=== PATIENT | female | born 2000 | race Caucasian/White ===

== ENCOUNTER 2023-04-27 09:19 | Outpatient (REF) | payer OTHER, SELFPAY ==
[2023-04-27 15:04] LABS: CT PCR NOT DETECTED (Not Detect.); NG PCR NOT DETECTED (Not Detect.)
[2023-04-28 13:15] LABS: BV Int Neg Control Negative (Negative); BV Int Pos Control Positive (Positive)
== END 2023-04-27 09:20 | disposition home or self-care (01) ==
LOC: HO.LNP 09:19
PROVIDERS: PCP Pediatrics; Visit Provider Advanced Practice Midwife
DX: Z01.419 Encounter for gynecological examination (general) (routine) without abnormal findings (principal); Z11.3 Encounter for screening for infections with a predominantly sexual mode of transmission
CPT/HCPCS: 0353U; 87480; 87510; 87660; 88142

== ENCOUNTER 2023-04-27 09:19 | Outpatient (AMB) | payer OTHER, SELFPAY ==
[2023-04-27 09:32] VITALS: BP 106/66; BMI 25.8
--- NOTE | 2023-04-27 09:32 | MHC.OFFVIS ---
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 Intake Note: concern of color change of menses Homemaker Companion Required: No Information Interpreted: non-clinical & clinical Party Plan Demonstrator: Party Plan Demonstrator Present (Joi) Allergies No Known Allergies [No Known Allergies*] Allergy (Verified 04/27/23 09:40) Medication List - Last Reconciled 04/27/23 by DEONNA Leal norgest/e.estradiol-e.estrad 0.15 mg-30 mcg (84)/10 mcg (7) (Simpesse) PO naproxen 500 mg PO BID Is last menstrual period known: Yes Last menstrual period: 03/13/23 Post menopausal: No 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 She is sexually active though not recently she has been on controls for many many years to deal with her very seriously heavy crampy periods she was on regular control pills for a while but she was still getting very bed periods keeping her from school so than she started on the every 3 months formulation with 1 week of placebo every 3 months and that is been working well though she is starting to notice that sometime she spotting in between for instance she recently spotted and she is 6 weeks in to her pack. After thinking about her options she thinks she would like to stay on the pills. She is in college at [employer] and is is seen year and is planning graduate school and double major. 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 She does use condoms if she needs to for a backup and for safer sex she uses her seatbelt and exercises and eats well. [facility] Surgical History Hx of wisdom tooth extraction Family History Family/Other Breast cancer Social History (Updated 04/27/23 @ 09:42 by JOANNA Lott) Alcohol intake: current Alcohol intake frequency: holidays/special occasions only Female Reproductive History Menstrual Age of Menarche: 14 Duration of menses: 6-7 days Date of last menstrual period: 03/13/23 control method: pills Total pregnancies: 0 Physical Exam Vital Signs: Last Vital Signs BP 106/66 04/27/23 09:32 BMI result Body Mass Index 25.8 Const General: healthy appearing, comfortable, no acute distress, well developed and alert Nutritional Appearance: average body habitus Orientation/consciousness: patient oriented x3 Limitations: no limitations HEENT Head: Yes normocephalic Neck Neck: Yes normal visual inspection Thyroid: Thyroid normal Chest Chest palpation & inspection: normal inspection of the chest Breast/axilla inspection: normal inspection of the breasts and normal inspection of the axillae Breast/axilla palpation: normal palpation of the breasts and normal palpation of the axillae Resp Effort & Inspection: normal respiratory effort GI Inspection: Yes normal to inspection, No Abdominal wall edema and No distended Palpation (GI): Soft to palpation and nontender General: Yes bladder normal to palpation External Female Exam: normal external appearance and normal appearance of the urethra Speculum Exam - Vagina: normal appearance of the vagina, normal palpation and normal vaginal discharge Speculum Exam - Cervix: normal appearance of the cervix, normal palpation and nontender Bimanual exam- vagina & uterus: normal bimanual exam, normal palpation, uterine size normal, bladder normal to palpation, consistency normal, normal palpation, uterine mobility normal, uterine shape normal, No Cervical tenderness present, non-tender and no cervical motion tenderness Bimanual Exam- Adnexa, other: normal adnexae, no masses, normal and No adnexal tenderness Neuro General: patient oriented x3 Assessment & Plan Assessment & Plan (1) Well woman exam with routine gynecological exam: Code(s): Z01.419 - Encounter for gynecological examination (general) (routine) without abnormal findings (2) control counseling: Code(s): Z30.09 - Encounter for other general counseling and advice on contraception (3) Surveillance for control, oral contraceptives: Code(s): Z30.41 - Encounter for surveillance of contraceptive pills (4) Cervical cancer screening: Code(s): Z12.4 - Encounter for screening for malignant neoplasm of cervix (5) Encounter for screening examination for sexually transmitted disease: Code(s): Z11.3 - Encounter for screening for infections with a predominantly sexual mode of transmission Plan -----Discussed in this visit the following: healthy balanced diet, regular and consistent exercise, getting recommended health screens, doing the best she can for her particular health concerns, kegel exercises, pap smear screening and followup recommendations, mammography screening and SBE, normal changes in cycles in her life stage--- . Reviewed her control in detail reviewed that very often women will have a breakthrough bleed sometimes fpc through a 3 month series and if that happens 1 option may be to just treat that as her placebo week and then resume 7 days afterwards with the active pills but never go more than 7 days without the active pills consider carrying tampons always so that she is always prepared and ready and I refilled her prescriptions for another year she is open to doing testing for STIs so lab work orders were placed we will see her in 1 year. Is on the portal. Orders: Orders HIV Ab/Ag Today Z01.419 - Encounter for gynecological examination (general) (routine) without abnormal findings, Z11.3 - Encounter for screening for infections with a predominantly sexual mode of transmission, Z12.4 - Encounter for screening for malignant neoplasm of cervix, Z30.09 - Encounter for other general counseling and advice on contraception, Z30.41 - Encounter for surveillance of contraceptive pills Hepatitis B Surface Antigen Today Z01.419 - Encounter for gynecological examination (general) (routine) without abnormal findings, Z11.3 - Encounter for screening for infections with a predominantly sexual mode of transmission, Z12.4 - Encounter for screening for malignant neoplasm of cervix, Z30.09 - Encounter for other general counseling and advice on contraception, Z30.41 - Encounter for surveillance of contraceptive pills Hepatitis C Antibody Today Z01.419 - Encounter for gynecological examination (general) (routine) without abnormal findings, Z11.3 - Encounter for screening for infections with a predominantly sexual mode of transmission, Z12.4 - Encounter for screening for malignant neoplasm of cervix, Z30.09 - Encounter for other general counseling and advice on contraception, Z30.41 - Encounter for surveillance of contraceptive pills Syphilis Screen Today Z01.419 - Encounter for gynecological examination (general) (routine) without abnormal findings, Z11.3 - Encounter for screening for infections with a predominantly sexual mode of transmission, Z12.4 - Encounter for screening for malignant neoplasm of cervix, Z30.09 - Encounter for other general counseling and advice on contraception, Z30.41 - Encounter for surveillance of contraceptive pills Medications: New L norgest/e.estradiol-e.estrad 0.15 mg-30 mcg (84)/10 mcg (7) (Simpesse) 1 tab PO DAILY 182 ea 3RF Coding Level of Care Code New Pt Prev Care 18-39yr(19188 Diagnoses Well woman exam with routine gynecological exam Z01.419 control counseling Z30.09 Surveillance for control, oral contraceptives Z30.41 Cervical cancer screening Z12.4 Encounter for screening examination for sexually transmitted disease Z11.3
== END 2023-04-27 10:21 | disposition home or self-care (01) ==
PROVIDERS: PCP Pediatrics; Visit Provider Advanced Practice Midwife
DX: Z01.419 Encounter for gynecological examination (general) (routine) without abnormal findings (principal); Z30.09 Encounter for other general counseling and advice on contraception; Z30.41 Encounter for surveillance of contraceptive pills; Z12.4 Encounter for screening for malignant neoplasm of cervix; Z11.3 Encounter for screening for infections with a predominantly sexual mode of transmission
CPT/HCPCS: 99385

== ENCOUNTER → 2024-02-23 08:06 | Outpatient (BNVA) | payer OTHER, SELFPAY | PROVIDERS: PCP Pediatrics; Visit Provider Registered Nurse | DX: S50.871A Other superficial bite of right forearm, initial encounter (principal); W50.3XXA Accidental bite by another person, initial encounter | CPT/HCPCS: 90715; 99202 ==

== ENCOUNTER → 2024-10-17 11:40 | Outpatient (BNVA) | payer OTHER, SELFPAY | PROVIDERS: PCP Pediatrics; Visit Provider Physician Assistant Medical | DX: S50.812A Abrasion of left forearm, initial encounter (principal); S50.811A Abrasion of right forearm, initial encounter; S60.511A Abrasion of right hand, initial encounter; W50.4XXA Accidental scratch by another person, initial encounter; Z02.79 Encounter for issue of other medical certificate | CPT/HCPCS: 99202 ==

== ENCOUNTER → 2024-10-21 11:31 | Outpatient (BNVA) | payer OTHER, SELFPAY | PROVIDERS: PCP Pediatrics; Visit Provider Physician Assistant Medical | DX: S50.812A Abrasion of left forearm, initial encounter (principal); S50.811A Abrasion of right forearm, initial encounter; W50.4XXA Accidental scratch by another person, initial encounter; Z02.79 Encounter for issue of other medical certificate | CPT/HCPCS: 99213 ==

== ENCOUNTER 2025-05-01 09:03 | Outpatient (AMB) | payer OTHER, SELFPAY ==
--- NOTE | 2025-05-01 09:07 | A.OFFPC_ITS ---
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 Required: No Accompanied by: Self / Same As Patient Allergies No Known Allergies (No Known Allergies*) Allergy (Verified 05/01/25 09:07) Medication List - Last Reconciled 05/01/25 by ALBAN Villatoro acetaminophen ER (Tylenol 8 Hour) 650 mg PO Q12H ibuprofen 400 mg PO Q6H PRN L norgest/e.estradiol-e.estrad 0.15 mg-30 mcg (84)/10 mcg (7) (Simpesse) take 1 tablet daily following the order on blister card(s) PO start with next menses Tobacco use date assessed: 05/01/25 Dental Screening Dental Screen Date: 05/01/25 Did you have a dental visit in the last 12 months?: No Did you have a dental problem in the last 6 months where you did not have access to dental care?: Yes Was dental information given to patient?: Patient has dentist HPI HPI Comments History of Present Illness Details History of Present Illness The patient is a 24 year old female without significant PMH presenting for a new patient visit to establish primary care. She has no significant past medical history. The patient is interested in resuming control for both contraception and symptom control, with a preference for symptom management. She was previously on a monthly oral contraceptive and most recently on a 3-month cycle pill. She notes that her past medications initially helped her symptoms but became less effective after a year or two. The patient is also considering an IUD as a potential option. The patient reports intermittent lower back and hip pain, which is worse when lying down to sleep. 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 The patient reports restless sleep and difficulty falling asleep unless she is exhausted. She experiences racing thoughts at bedtime and finds that background noise, such as a TV, is necessary to fall asleep, though her back and hip pain can also interfere with her comfort. Regarding health maintenance, her last Pap smear was one to two years ago. She is up to date on her annual flu shot and COVID booster. She received a tetanus shot in April of 2024 after being bitten at work. She wears glasses for vision but needs an updated eye exam. Medical History: - No significant medical history reporte d. - History of animal bite in April. Medications: - Past use of oral contraceptives. Health Maintenance To establish a baseline, lab work will be ordered to check her blood count, sugar, thyroid, and cholesterol levels. A referral for an eye exam will be placed as she is due for an updated prescription. A referral to gynecology will be placed for a Pap smear and contraception counseling. A follow-up appointment is scheduled in six weeks to review lab results and ensure referrals are proceeding. 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 - Previously experienced a lapse in [facility] [employer] internation [employer] insurance coverage but recently obtained it through her job. - Reports difficulty sleeping, with a ra cing mind at night. - Uses TV for background noise to aid sl eep. - Has a history of playing sports, inclu ding softball and field hockey. Patient was informed and verbally consented to the use of an ambient scribe for clinic note documentation during this visit. PENDING SALE TO [facility] Medical History (Updated 05/01/25 @ 11:47 by ALBAN Villatoro) Health care maintenance Insomnia Surgical History Hx of wisdom tooth extraction Family History Family/Other Breast cancer Social History (Updated 04/27/23 @ 09:42 by JOANNA Lott) Housing: House Alcohol intake: current Alcohol intake frequency: holidays/special occasions only Patient Tobacco Use Status: Never used Tobacco e-Cigarette/Vaping Use: Never Used service: No Current occupational status: employed Current occupation: [employer] Female Reproductive History Menstrual Age of Menarche: 14 Questionnaire PHQ-9 Over the last 2 weeks, how often have you been bothered by any of the following problems? 1. Little interest or pleasure in doing things: not at all 2. Feeling down, depressed, or hopeless: not at all 3. Trouble falling or staying asleep, or sleeping too much: more than half the days 4. Feeling tired or having little energy: several days 5. Poor appetite or overeating: not at all 6. Feeling bad about yourself - or that you are a failure or have let yourself or your family down: not at all 7. Trouble concentrating on things, such as reading the newspaper or watching television: not at all 8. Moving or speaking so slowly that other people could have noticed. Or the opposite - being so fidgety or restless that you have been moving around a lot more than usual: not at all 9. Thoughts that you would be better off or of hurting yourself in some way: not at all Total score: 3 Depression Screening Interpretation: Negative Depression Screening Done: Yes Source: Developed by Drs. Lenny Dupree, Yenifer Duncan, Danial Kovacs and colleagues, with an educational lars from [employer]. Thrive Questionnaire Date Thrive assessed: 05/01/25 I am a: Patient What is your living situation today?: I have a steady place to live Within the past 12 months, did the food you bought not last and you didn't have the money to get more?: Never true Within the past 12 months, did you worry whether your food would run out before you got money to buy more?: Never true Do you have trouble paying for medicines?: No Do you have trouble getting transportation to medical appointments?: No Do you have trouble paying your heating and electricity bill?: No Do you have trouble taking care of your child, family member or friend?: No Do you have trouble with day-to-day activities such as bathing, preparing meals, shopping, managing finances, etc.?: No Are you currently unemployed and looking for a job?: No Are you interested in more education?: No THRIVE Score: 0 AUDIT C Alcohol Use Questionnaire (AUDIT-C) 1. How often do you have a drink containing alcohol?: 2-4 times a month 2. How many drinks containing alcohol do you have on a typical day when you are drinking?: 1 or 2 3. How often do you have six or more drinks on one occasion?: Never Total Score: 2 DON-7 AMB Questionnaire DON-7 Date DON - 7 assessed: 05/01/25 Feeling nervous, anxious, or on edge: 1 = Several days Not being able to stop or control worryin = Several days Worrying too much about different things: 0 = Not at all Trouble relaxin = Not at all Being so restless that it is hard to sit still: 1 = Several days Becoming easily annoyed or irritable: 1 = Several days Feeling afraid as if something awful might happen: 0 = Not at all Total DON-7 score (0-4 normal; 5-9 mild; 10-14 moderate; 15-21 severe): 4 Source: Developed by Drs. Lenny Dupree, Yenifer Duncan, Danial Kovacs and colleagues, with an educational lars from [employer]. Review of Systems Narrative Review of Systems - Eyes: Reports need for updated glasses prescription. - Ears, Nose, Throat: Denies problems with hearing. - Cardiovascular: Denies chest pain. - Respiratory: Denies shortness of breath and cough. - Gastrointestinal: Denies constipation, diarrhea, and heartburn. - Musculoskeletal: Reports intermittent lower back and hip pain, worse when lying down. - Neurological: Reports difficulty falling asleep due to racing thoughts. Physical exam (Primary Care) Vital Signs: Last Vital Signs Temp 98.5 F 05/01/25 09:14 Pulse 90 05/01/25 09:14 Resp 18 05/01/25 09:14 BP 126/66 05/01/25 09:14 Pulse Ox 98 05/01/25 09:14 Oxygen Delivery Method Room Air 05/01/25 09:14 BMI result Body Mass Index 27.6 GENERAL Well developed, Well nourished, in no apparent distress HEENT Head-Normocephalic Eyes- PERRLA, EOMI, Conjuctiva clear, lids WNL Ears- Canals clear, TMs WNL Mouth/Throat-No lesions, no erythema, no exudate Neck- Supple, No lymphadenopathy, thyroid WNL RESPIRATORY Normal I:E, Clear to auscultation CARDIOVASCULAR Regular, rate and rhythm, No murmurs or rubs GASTROINTESTINAL Soft, nontender, normal bowel sounds, no masses MUSCULOSKELETAL Back- nontender Joints- no swelling or deformity NEUROLOGICAL Gait normal PSYCHIATRIC Oriented to person, place and time Mood and affect WNL Appearance WNL Speech WNL Thought processes WNL Tobacco/Smoking Status: Tobacco use Status Tobacco use date assessed 05/01/25 05/01/25 09:09 Patient Tobacco Use Status Never used Tobacco 05/01/25 09:17 e-Cigarette/Vaping Use Never Used 05/01/25 09:17 PHQ-9: PHQ-9 Score PHQ-9: Total score 3 05/01/25 09:45 Depression Screening Interpretation: Negative Thrive Assessment: Date of Thrive Assessment Date Thrive assessed 05/01/25 05/01/25 09:09 Coding Level of Care Code New Pt New Pt Level 4 (80674) Patient Type New Diagnoses control counseling Z30.09 Health care maintenance Z00.00 Insomnia G47.00 Time Spent (min) 35 Comment Time spent on chart review, H&P, Patient education and orders. Assessment & Plan Assessment & Plan (1) control counseling: Code(s): Z30.09 - Encounter for other general counseling and advice on contraception Category: Medical Plan: Will restart Simpesse. Will refer to NURSERY MANAGER to discuss options (2) Health care maintenance: Code(s): Z00.00 - Encounter for general adult medical examination without abnormal f indings Category: Medical Plan: Will get labs. Will refer to NURSERY MANAGER and optometry (3) Insomnia: Code(s): G47.00 - Insomnia, unspecified Category: Medical Plan: Discussed good sleep hygiene. Recommend trying Melatonin Plan Plan Patient was informed and verbally consented to the use of an ambient scribe for clinic note documentation during this visit. 1. Contraception Management The patient desires to restart control for both contraception and symptom control. A one-year prescription for her previous 3-month cycle oral contraceptive will be sent to her preferred [facility] pharmacy to serve as a temporary measure. She has been counseled to start the pills on the first day of her next period. A referral will be placed for her to see a chop saw operator to discuss long- term options, including an IUD, implants, or injections, and to undergo a Pap smear. 2. Insomnia The patient reports difficulty sleeping due to racing thoughts and discomfort from back and hip pain. Discussed sleep hygiene, including maintaining a consistent sleep schedule, keeping the bedroom dark, quiet, and cool, avoiding caffeine after 2-3 PM, and discontinuing blue light from screens at least one hour before bed. Recommended trying [id number] melatonin, starting with 3 mg about an hour before bedtime for a couple of weeks to help reset her sleep cycle, with the option to increase to 5 mg if needed. Explained the risks of long-term, high-dose melatonin use on natural production. Discussion Notes I discussed the plan with the patient for this new patient visit. I am placing referrals for an eye exam and a gynecology visit, where she will undergo a Pap smear and discuss long-term contraceptive options like an IUD. In the interim, I am prescribing a one-year supply of her previous 3-month oral contraceptive, which I will send to her preferred pharmacy. I instructed her to restart the pills on the first day of her next menstrual cycle. We will also be ordering baseline lab work. We discussed sleep hygiene techniques for her insomnia, including maintaining a regular sleep schedule, creating a restful environment, and avoiding blue light and caffeine before bed. I recommended she try a 3 mg dose of melatonin nightly for two weeks to help reset her sleep cycle and reassured her that it should not cause difficulty waking up. We will follow up in about six weeks to review her lab results and check on the progress of her referrals. Patient Instructions - I have sent a prescription [facility] control [facility] to the [facility] [address]. Please allow about an hour for the pharmacy to get it ready. Start taking the pills on the first day of your next period. - Go to the lab to have your blood work done. There is a lab to the left of the waiting room. - Our office will call you to schedule appointments for an eye exam and a visit with a chop saw operator. - For trouble sleeping, try to go to bed and wake up around the same time each day, even on weekends. Make sure your room is dark, quiet, and cool. Avoid caffeine in the afternoon and evening. Turn off screens like your TV and phone at least an hour before bed. - You can try taking 3 mg of melatonin about an hour before bed for a couple of weeks to help your sleep. This should not make it hard for you to wake up in the morning. - Schedule a follow-up appointment in six weeks to go over your lab results and check on your progress. Orders: Orders Complete Blood Count no Diff Today Z00.00 - Encounter for general adult medical examination without abnormal findings, Z30.09 - Encounter for other general counseling and advice on contraception Comprehensive Met. Panel Today Z00.00 - Encounter for general adult medical examination without abnormal findings, Z13.1 - Encounter for screening for dariela betes mellitus Lipid Panel Today Z00.00 - Encounter for general adult medical examination without abnormal findings, Z13.220 - Encounter for screening for lipoid disorders TSH reflex Free T4 Today Z00.00 - Encounter for general adult medical examination without abnormal findings Vitamin D 25-OH Total Today Z00.00 - Encounter for general adult medical examination without abnormal findings Referrals DRUM REEL CUTTER Referral Z12.4 - Encounter for screening for malignant neoplasm of cervix, Z30.09 - Encounter for other general counseling and advice on contraception Optometry Referral H54.7 - Unspecified visual loss Medications: New L norgest/e.estradiol-e.estrad 0.15 mg-30 mcg (84)/10 mcg (7) (Simpesse) take 1 tablet daily following the order on blister card(s) PO start with next menses 182 ea 0RF contraception
[2025-05-01 09:14] VITALS: BP 126/66; PULSE 90; RESP 18; TEMP 36.9; O2SAT 98; BMI 27.6
== END 2025-05-01 09:47 | disposition home or self-care (01) ==
LOC: HO.HMCHD 09:04
PROVIDERS: PCP Pediatrics; Visit Provider Physician Assistant Medical
DX: Z30.09 Encounter for other general counseling and advice on contraception (principal); Z00.00 Encounter for general adult medical examination without abnormal findings; G47.00 Insomnia, unspecified

== ENCOUNTER 2025-05-07 07:46 | Outpatient (REF) | payer OTHER, SELFPAY ==
--- OUTSIDE RECORDS SUMMARY | 2025-05-07 07:50 | XMS_ITS | Encounter Summary ---
Author Organization [facility] Address [address] [place] [address] Phone Care Team Providers Care Public Address Servicer Name Role Phone Naz Bass DO Primary Care Provider [phone] Encounter Details Date Type Department Care Team (Late st Contact Info) Description 09/07/2010 Documentation [facility] [place] [facility] [address] [place], [place] [id number] Family Medicine, Physician [address] [place] [address] Social History Tobacco Use Types Packs/Day Years Used Date Smoking Tobacco: Never Assessed Comments Unknown Sex and Gender Information Value Date Recorded Sex Assigned at Not on file Legal Sex Female 4:52 PM EDT Gender Identity Female 02/07/2020 1:11 PM EDT Sexual Orientation Not on file documented as of this encounter Plan of Treatment Not on file documented as of this encounter Visit Diagnoses Not on filedocumented in this encounter Care Teams Public Address Servicer Relationship Specialty Start Date End Date Naz Bass DO [address] [place] [address] [place], [place] [address] PCP - General 12/30/16 11/09/22 documented as of this encounter
--- OUTSIDE RECORDS SUMMARY | 2025-05-07 07:50 | XMS_ITS | Encounter Summary ---
Author Organization [facility] Address [address] [place] [address] Phone Care Team Providers Care Operations Logistics Analyst Name Role Phone Naz Bass DO Primary Care Provider [phone] Encounter Details Date Type Department Care Team (Late st Contact Info) Description 09/07/2010 Documentation [facility] [address] [place], [place] [id number] Family Medicine, Physician [address] [place] [address] Social History Tobacco Use Types Packs/Day Years [...] on filedocumented in this encounter Care Teams Operations Logistics Analyst Relationship Specialty Start Date End Date Naz Bass DO [address] [place] [address] [place], [place] [address] PCP - General 12/30/16 11/09/22 documented as of this encounter
--- OUTSIDE RECORDS SUMMARY | 2025-05-07 07:50 | XMS_ITS | Encounter Summary ---
Author Organization [facility] Address [address] [place] [id number] Phone Care Team Providers Care Wall Covering Contractor Name Role Phone Naz Bass DO Primary Care Provider [phone] Reason for Visit * Reason Comments Med Refill Encounter Details Date Type Department Care Team (Late st Contact Info) Description 06/28/2019 Refill [facility] [address] [place] [address] Naz Bass DO [address] [place] [address] Oral contraceptive pill surveillance Social History Tobacco Use Types Packs/Day Years Used Date Smoking Tobacco: Never Smokeless Tobacco: Never Comments:Never smoker Alcohol Use Standard Drinks/Week Comments No 0 (1 standard drink = 0.6 oz pur e alcohol) Comments Unknown Sex and Gender Information Value Date Recorded Sex Assigned at Not on file Legal Sex Female 4:52 PM EDT Gender Identity Female 02/07/2020 1:11 PM EDT Sexual Orientation Not on file documented as of this encounter Miscellaneous Notes * Telephone Encounter - Serina Tabares LPN - 06/28/2019 8:53 AM EST Refill request for OCP's. Last PE 12/12/18/GILBERTO documented in this encounter Plan of Treatment Not on file documented as of this encounter Visit Diagnoses Diagnosis Oral contraceptive pill surveillance documented in this encounter Care Teams Wall Covering Contractor Relationship Specialty Start Date End Date Naz Bass DO [address] [facility] [place] [address] PCP - General 12/30/16 11/09/22 documented as of this encounter
--- OUTSIDE RECORDS SUMMARY | 2025-05-07 07:50 | XMS_ITS | Encounter Summary ---
Author Organization [facility] Address [address] [place] [address] Phone Care Team Providers Care Intervention Nurse Name Role Phone Naz Bass DO Primary Care Provider Encounter Details Date Type Department Care Team (Late st Contact Info) Description 01/05/2017 Conversion Encounter [facility] [address] [place] [address] Social History Tobacco Use Types Packs/Day Years Used Date Smoking Tobacco: Never Comments:Never smoker Comments Unknown Sex and Gender Information Value Date Recorded Sex Assigned at Not on file Legal Sex Female 4:52 PM EDT Gender Identity Female 02/07/2020 1:11 PM EDT Sexual Orientation Not on file documented as of this encounter Plan of Treatment Not on file documented as of this encounter Visit Diagnoses Not on filedocumented in this encounter Care Teams Intervention Nurse Relationship Specialty Start Date End Date Naz Bass DO [address] [facility] [place] [address] PCP - General 12/30/16 11/09/22 documented as of this encounter
--- OUTSIDE RECORDS SUMMARY | 2025-05-07 07:50 | XMS_ITS | Encounter Summary ---
Author Organization [facility] Address [address] [place] [address] Phone Care Team Providers Care Oracle Architect Name Role Phone Naz Bass DO Primary Care Provider [phone] Encounter Details Date Type Department Care Team (Late st Contact Info) Description 08/01/2013 Documentation [facility] [address] [place] [address] Family Medicine, Physician [address] [place] [address] Social History Tobacco Use Types Packs/Day Years [...] on filedocumented in this encounter Care Teams Oracle Architect Relationship Specialty Start Date End Date Naz Bass DO [address] [place] [address] [place], [place] [address] PCP - General 12/30/16 11/09/22 documented as of this encounter
--- OUTSIDE RECORDS SUMMARY | 2025-05-07 07:50 | XMS_ITS | Clinical Summary ---
Author Organization [facility] Address [address] [place] [address] Phone Care Team Providers Care Signs Sales Representative Name Role Phone Unavailable Primary Care Provider Unavailabl e Allergies No known active allergies Medications naproxen sodium (Anaprox DS) 550 MG tabletIndication s:Menstrual cramps 1 tablet q12h prn menstrual cramps 30 tablet 2 0 Active Levonorgest-Eth Estrad 91-Day 0.15-0.03 &0.01 MG tabletIndication s:Encounter for control pills maintenance TAKE 1 TABLET BY MOUTH EVERY DAY 91 tablet 3 3 Active Active Problems Problem Noted Date Diagnosed Date Depression 10/28/2021 Overview (12/08/2021): Working w/ [facility] summer 2021 Assessment & Plan (12/08/2021 10:37 AM EDT): Seeing [facility] this summer Has access to therapy @ [facility]- encouraged to reach back out to the college therapist she saw last spring when she gets back to [employer] Assessment & Plan (11/18/2021 10:26 AM EDT): Patient with low mood, low motivation, sleep disturbance, negative feelings about self, history of suicidal thoughts in the context of complex family situation and unresolved grief and loss. Patient will benefit from CBT strategies to address negative thoughts and increase healthy behaviors. Patient is ready to address low mood. Pt. Shows good insight. PLAN: 1. Follow up with [facility] three weeks 2. Patient goal is to reduce discomfort from depressive symptoms from average of 7 to 4. 3. Behavioral Recommendations: a. Engage in activities she enjoys over the summer. b. Begin to catch negative thoughts. c. Work towards getting enough sleep and regular meal schedule with erratic work hours. Assessment & Plan (10/28/2021 11:30 AM EDT): Patient with low mood, low motivation, sleep disturbance, negative feelings about self, history of suicidal thoughts in the context of complex family situation and unresolved grief and loss. Patient will benefit from CBT strategies to address negative thoughts and increase healthy behaviors. Patient is ready to address low mood. Pt. Shows good insight. PLAN: 1. Follow up with [facility] three weeks 2. Patient goal is to reduce discomfort from depressive symptoms from average of 7 to 4. 3. Behavioral Recommendations: a. Engage in activities she enjoys over the summer. b. Begin to catch negative thoughts. c. Work towards getting enough sleep and regular meal schedule with erratic work hours. Chronic migraine without aur a without status migrainosus, not intractable 05/05/2017 Overview (12/13/2018): Infreq nowadays Assessment & Plan (12/12/2017 6:50 AM EDT): Perhaps one a week; she needs better sleep and drink more fluids and decrease stress level Assessment & Plan (05/05/2017 2:09 PM EST): Better later, might have had a form of one yesterday. Resolved Problems Problem Noted Date Diagnosed Date Resolved Date History of 2019 novel edwards virus disease (COVID-19) 05/23/2020 10/05/2020 Overview (05/23/2020): [id number]- tested @ college; no signs and symptoms Needed EKG to return to sports- was wnl and letter written Immunizations Immunization Administration Dates Next Due COVID-19 Pfizer, monovalent, 12+ years 1,07/08/2020 DTaP 5 08/15/2006, 3,02/20/2002,12/19,2001 H1N1 06/15/2009,04/21/2009 HPV, Quadrivalent 03/04/2014,10/30/2013,09/03/19 14 Hep A, ped/adol 09/22/2014,09/02/2013 Hep B, ped/adol 05/23/2002,2001,2001 Hib (PRP-T) 11/05/2002, 2,2001,09/26 IPV 08/15/2006, 3,2001,09/26 Influenza, injectable, quadr ivalent, preservative free 02/08/2020,04/21/2018,05/05/2017 Influenza, injectable, trivalent 04/21/2009,07/2006,06/28/2006 Influenza, injectable, triva lent, preservative free 03/15/2021 Influenza, intranasal, quadrivalent 03/04/2014 Influenza, intranasal, trivalent 02/23/2012,03/22,02/04/2010 MMR 08/06/2002 MMRV 08/15/2006 Meningococcal B Trumenba 06/23/2020,12/20/2019 Meningococcal Conj (Menactra) MCV4P 12/11/2017,0 08/08/2012 Pneumococcal Conjugate 11/05/2002,2001,2001,09/26 Tdap 08/08/2012 Varicella 08/06/2002 Family History Medical History Relation Name Comments No Known Problems Father Martin Cancer Maternal Grandfather throat Hyperlipidemia Maternal Grandmother Hypertension Maternal Grandmother Leukemia Maternal Grandmother Ovarian cancer Maternal Grandmother Emphysema Mother Jeanna smoker Melanoma Mother Jeanna Migraines Mother Jeanna Colon polyps Sister 1 Rosa Elena Jackson Relation Name Status Comments Brother 1 Maxim Steele Alive Brother: Asthma , Obesity, Alive and well Brother 2 Macho Zac Alive Brother 3 Joseph Steele Alive Father Martin Alive Father: Alive a nd well Maternal Grandfather Materna l grandfather: Cancer, throat Maternal Grandmother Alive Materna l grandmother: Heart disease, High cholesterol, Hypertension Mother Jeanna Alive Mother: Migrain es Other Family history of Cancer, breast, Family history of Hyperlipidemia Paternal Grandfather Paternal Grandmother Alive Sister 1 Rosa Elena Jackson Alive Sister: Asthma , Asthma Sister 2 Rebecca Steele Alive Sister: Asthma , Asthma Sister 3 Sanjana Steele Alive Social History Tobacco Use Types Packs/Day Years Used Date Smoking Tobacco: Never Smokeless Tobacco: Never Comments:Never smoker Alcohol Use Standard Drinks/Week Comments No 0 (1 standard drink = 0.6 oz pur e alcohol) Hunger/Food Answer Date Recorded In the last 12 months, did y ou or your family ever eat less than you felt you should because there wasn't enough money for food? No 12/08/2021 Stable Housing Answer Date Recorded Are you worried that in the next 2 months you may not have stable housing? No 12/08/2021 Transportation Concerns Answer Date Rec orded In the last 12 months, have you or your family ever had to go without healthcare because you didn't have a way to get there? No 12/08/2021 Hazards in Home Answer Date Recorded Think about the place you li ve. Do you have problems with any of the following? Pests (mice or roaches), mold, no/not working smoke detectors, water leaks, no window guards. No 2021 Financing Utilities Answer Date Recorde d In the last 12 months, has t he electric, gas, oil, or water company threatened to shut off your services in your home? No 12/08/2021 Safety at Home Answer Date Recorded Are you or your family worried about feeling saf e in your home? No 12/08/2021 Outside Support Answer Date Recorded Do you feel that you need mo re support from other people or programs to help you care for yourself or your family? No 12/08/2021 Understanding Health Concerns Answer Da te Recorded Do you need help understandi ng your or your child's healthcare needs (diagnosis, medications, plan, etc.)? No 12/08/2021 Financing Health Concerns Answer Date R ecorded In the last 12 months, was t here a time when your child needed to see a doctor or get medications or supplies but could not because of cost? No 12/08/2021 Missing School or Work Answer Date Hemanth rded Did you or your child miss s chool or work because of a health problem that could have been avoided? No 12/08/2021 Comments No Sex and Gender Information Value Date Recorded Sex Assigned at Not on file Legal Sex Female 4:52 PM EDT Gender Identity Female 02/07/2020 1:11 PM EDT Sexual Orientation Not on file Last Filed Vital Signs Vital Sign Reading Time Taken Comments Blood Pressure 116/78 12/08/2021 9:54 AM EDT Pulse 101 12/08/2021 9:54 AM EDT Temperature 37.1 C (98.7 F) 12/08/2021 9:54 AM EDT Respiratory Rate 24 01/14/2019 11:21 AM EDT Oxygen Saturation 97% 03/27/2021 11:38 AM EDT Inhaled Oxygen Concentration - - Weight 62.1 kg (137 lb) 12/08/2021 9:54 AM EDT Height 156.8 cm (5' 1.75 ) 12/08/2021 9:54 AM ED T Body Mass Index 25.26 12/08/2021 9:54 AM EDT Plan of Treatment Health Maintenance Due Date Last Done Comments DTaP,Tdap,and Td Vaccines (7 - Td or Tdap) 08/08/2022 08/08/2012, 08/15/2006, 01/28/2003, Additional history exists Influenza Vaccines (#1) 2024 02/26/20, 03/15/2021, 02/08/2020, Additional history exists COVID-19 Vaccine (2024-2 6 season) 2025 04/07/2021, 08/17/2020, 07/08/2020 Hepatitis B Vaccines Completed 05/23/2002, 2001, 2001 HIB Vaccines Completed 11/05/2002, 06/2001, 2001, Additional history exists Pneumococcal Vaccine Completed 11/05/2002, 02/20/2002, 2001, Additional history exists IPV Vaccines Completed 08/15/2006, 06/2002, 2001, Additional history exists MMR Vaccines Completed 08/15/2006, 08/06/2002 Varicella Vaccines Completed 08/15/2006, 08/06/2002 HPV Vaccines Completed 03/04/2014, 10/20, 09/02/2013 Hepatitis A Vaccines Completed 09/22/2014, 09/03/19 14 Meningococcal Vaccine Completed 12/11/2017, 013 Men B Vaccine Completed 06/23/2020, 12/20/2019 Procedures * Due to [place] [employer] law, this organization might not be sharing sensitive test results. Procedure Name Priority Date/Time Associated Diagnosis Comments CHLAMYDIA AND GONORRHEA, AMPLIFIED Routine 12/08/2021 7:08 PM EDT Encounter for screening examination for chlamydial infection from Last 3 Months or Most Recently Relevant to Health Maintenance Results * Due to [place] [employer] law, this organization might not be sharing sensitive test results. * Chlamydia and Gonorrhoea, Amplified (Urine) (12/08/2021 7:08 PM EDT) Chlamydia Trachomatis, DNA Probe NEGATIVE (NEG) [facility] Comment: No Chlamydia Trachomatis RNA detected in this patient's sample (REFERENCE RANGE/NORMAL VALUE: NOT DETECTED) Note: This test uses chemical production machine operator- mediated amplification method to detect rRNA from C. Trachomatis URINE GC AMP PROBE NEGATIVE (NEG) [facility] Comment: No Neisseria Gonorrhoeae RNA detected in this patient's sample (REFERENCE RANGE/NORMAL VALUE: NOT DETECTED) NOTE: This test uses chemical production machine operator-mediated amplification method to detect rRNA from N.Gonorrhoeae. A negative result does not preclude infection. In the case of a negative urine result, testing of an endocervical(female) or urethral (male) specimen is recommended if there is high clinical suspicion of infection. Due to very high sensitivity of Nucleic Acid Amplification Test, false positive results may occur. Therefore, specimen handling is extremely important. In patients in whom the disease is unlikely, additional sample for testing should be considered after an initial positive result. The performance characteristics of this test have not been evaluated in children. The Aptima Combo2 assay is not intended for the evaluation of suspected sexual abuse or for other medico-legal indications. The ordering provider should assess if the patient had consensual sex without risk of sexual abuse. Consult the [facility] if needed. Contact phone number . Therapeutic failure or success cannot be determined with the Aptima Combo2 assay since nucleic acid may persist following appropriate antimicrobial therapy. The Centers for Disease Control and Prevention (CDC) recommends confirmatory retesting using culture or a different nucleic acid amplification test when positive results occur, if indicated. Testing performed or reported by [facility], a Service of [facility], [address] [place] [address] Richard Garcia MD, Store Worker [facility]# [id number] Urine (Urine, Random (not clean void)) 12/08/2021 7:08 PM EDT 12/08/2021 7:15 PM EDT us Naz Bass DO LAB MICROBIOLOGY - GENERAL ORDER SANIA Final Result [facility] from Last 3 Months or Most Recently Relevant to Health Maintenance Insurance [facility] NON PCC [place] [id number]
--- OUTSIDE RECORDS SUMMARY | 2025-05-07 07:50 | XMS_ITS | Encounter Summary ---
Author Organization [facility] Address [address] [place] [address] Phone Care Team Providers Care Inside Account Representative Name Role Phone Naz Bass DO Primary Care Provider [phone] Encounter Details Date Type Department Care Team (Late st Contact Info) Description 02/09/2010 Documentation [facility] Family Medicine [address] [place], [place] [id number] Family Medicine, Physician [address] [place] [address] Social History Tobacco Use Types Packs/Day Years [...] on filedocumented in this encounter Care Teams Inside Account Representative Relationship Specialty Start Date End Date Naz Bass DO [address] [place] [address] [place], [place] [address] PCP - General 12/30/16 11/09/22 documented as of this encounter
[2025-05-07 10:56] LABS: Hematocrit 43.0 % (37.0-47.0); Hemoglobin 14.4 g/dl (12.0-16.0); Mean Corpuscular HGB Conc 33.5 g/dl (31.0-35.0); Mean Corpuscular Hemoglobin 30.3 pg (27.0-33.0); Mean Corpuscular Volume 90.3 fL (80.0-98.0); NRBC Abs Auto 0.000 X10*3/uL (0.0-0.012); NRBC Pct Auto 0.0 /100WBC (0.0-0.2); Platelet Count 324 X10*3/uL (160-400); Red Blood Count 4.76 X10*6/uL (4.20-5.50); White Blood Count 6.7 X10*3/uL (4.8-10.8)
[2025-05-07 11:16] LABS: Alanine Aminotransferase 16 U/L (0-31); Albumin Level 4.5 g/dL (3.5-5.0); Alkaline Phosphatase 60 U/L (39-117); Anion Gap 11 (12-20); Aspartate Amino Transferase 19 U/L (5-31); Blood Urea Nitrogen 8 mg/dL (9-16); Calcium 9.2 mg/dL (8.4-10.2); Carbon Dioxide 25 mmol/L (22-29); Chloride 108 mmol/L (96-108); Cholesterol 175 mg/dL (<200); Estimated Glomerular Filt Rate > 60; HDL Cholesterol 68 mg/dL (>40); Potassium 4.0 mmol/L (3.3-5.1); Sodium 140 mmol/L (135-145); Total Protein 6.7 g/dL (6.5-8.0); Triglycerides 61 mg/dL (<150)
== END 2025-05-07 07:47 | disposition home or self-care (01) ==
LOC: HO.10HDL 07:46
PROVIDERS: Visit Provider Physician Assistant Medical
DX: Z00.00 Encounter for general adult medical examination without abnormal findings (principal); Z13.220 Encounter for screening for lipoid disorders; Z30.09 Encounter for other general counseling and advice on contraception; Z13.1 Encounter for screening for diabetes mellitus; Z13.29 Encounter for screening for other suspected endocrine disorder; Z13.0 Encounter for screening for diseases of the blood and blood-forming organs and certain disorders involving the immune mechanism; Z13.6 Encounter for screening for cardiovascular disorders; Z13.21 Encounter for screening for nutritional disorder
CPT/HCPCS: 36415; 80053; 80061; 82306; 84443; 85027